=== PATIENT | male | born 1985 | race Caucasian/White ===

== ENCOUNTER 2018-06-13 14:44 | Emergency (ER) | payer MEDICAID ==
[~2018-06-13] VITALS: Ht 170.2 cm; Wt 70.0 kg
[~2018-06-13 14:44] MED LIST: AMOX500C2 PO; CHLO473M3 PO; CLIN-12 PO; CYCL-1 PO; HYDR-565 PO; LEVA15HF4 INH; METH-360 PO; NAPR-996 PO; SUCR1ORA2 PO
[2018-06-13 14:50] VITALS: BP 115/75
[2018-06-13] MEDS ORDERED: IBUP-1984 PO (18:01)
== END 2018-06-13 18:12 | disposition home or self-care (01) ==
LOC: ER 14:44
DX: S01.511D Laceration without foreign body of lip, subsequent encounter (principal); R51 Headache; G89.29 Other chronic pain; Z98.890 Other specified postprocedural states; Z79.2 Long term (current) use of antibiotics; Z79.899 Other long term (current) drug therapy; Z59.0 Homelessness; W21.07XD Struck by softball, subsequent encounter
CPT/HCPCS: 70450; 70486; 99284

== ENCOUNTER 2020-05-24 06:10 | Emergency (ER) | payer MEDICAID ==
[~2020-05-24] VITALS: Ht 177.8 cm; Wt 81.8 kg
[~2020-05-24 06:10] MED LIST changes: -AMOX500C2 PO; +HYDR-4353 PO; -HYDR-565 PO
[2020-05-24 06:21] VITALS: BP 115/76
== END 2020-05-24 06:42 | disposition home or self-care (01) ==
LOC: ER 06:11
DX: R10.33 Periumbilical pain (principal); G89.29 Other chronic pain; Z72.89 Other problems related to lifestyle; Z98.890 Other specified postprocedural states; Z59.0 Homelessness; Z79.899 Other long term (current) drug therapy
CPT/HCPCS: 99281

== ENCOUNTER 2023-12-06 10:46 | Emergency (ER) | payer MEDICAID ==
[~2023-12-06] VITALS: Ht 177.8 cm; Wt 93.0 kg
[2023-12-06] MEDS ORDERED: AMOX-580 PO (11:27)
[2023-12-06] MEDS ORDERED: NAPR-56 PO (11:27)
[2023-12-06] MEDS: CefTRIAXone 1000mg IM Kit (w/lidocaine diluent) IM ONE (11:32)
[2023-12-06 11:41] VITALS: BP 144/92; PULSE 92; RESP 16; TEMP 98.2; O2SAT 97
== END 2023-12-06 11:43 | disposition home or self-care (01) ==
LOC: ER 10:47
DX: S61.231A Puncture wound without foreign body of left index finger without damage to nail, initial encounter (principal); W55.01XA Bitten by cat, initial encounter; Y93.89 Activity, other specified; Y92.89 Other specified places as the place of occurrence of the external cause; Y99.8 Other external cause status
CPT/HCPCS: 96372; 99283; J0696

== ENCOUNTER 2025-06-14 01:14 | Emergency (ER) | payer MEDICAID ==
[~2025-06-14] VITALS: Ht 177.8 cm; Wt 65.3 kg
[~2025-06-14 01:14] MED LIST changes: +CHLO473M13 PO; -CHLO473M3 PO; -LEVA15HF4 INH; +LEVA15HF9 INH; +NAPR-1168 PO; -NAPR-996 PO
[2025-06-14 01:27] VITALS: BP 145/65; PULSE 70; RESP 15; TEMP 97.5; O2SAT 99
[2025-06-14] MEDS: LIDOcaine 1% 30ml preserv. free vial SQ STA (02:10)
--- NOTE | 2025-06-14 02:10 | Physician Documentation ---
History of Present Illness ~ Chief Complaint: Laceration Stated Complaint: THUMB LAC Time Seen by MD: 01:37 Primary Medical Doctor: [facility] HPI 39-year-old male presented for evaluation of laceration to his left thumb that he sustained while cutting vegetables for his homemade dog food. Reports an immediate onset pain. Difficulty to control bleeding. Wrapped it up came to the emergency department. This has not happened in the past. Does not know when his last tetanus shot was. Tetanus Within 5 Years: No (2011) Medication Reconciliation Allergies: Coded Allergies: No Known Allergies (Unverified , 06/14/25) Scheduled Chlorhexidine Gluconate (Periogard), 15 ML PO Q12H Clindamycin Hcl (Clindamycin Hcl), 300 MG PO QID Levalbuterol Tartrate (Xopenex Hfa), 2 PUFFS INH Q4HPRN Methocarbamol (Robaxin-750), 1 TAB PO Q12H Naproxen (Naproxen), 1 TABLET PO BID Sucralfate (Carafate), 10 ML PO ACHS Scheduled PRN Cyclobenzaprine* (Cyclobenzaprine*), 1 TABLET PO HS PRN for muscle spasms Hydrocodone Bit/Acetaminophen ([place] 10-325 Tablet), 1 TAB PO Q6H PRN for pain Past Medical History Past Medical History: Glaucoma, Chronic Back Pain Past Surgical History: orthopedic surgeries, other Alcohol Use: Occasionally Drug Use: none Lives In: Homeless Review of Systems ROS 10 point review of systems was performed and unless noted above in HPI is negative for acute process/complaint. Physical Exam Vital Signs: Temperature: 97.5, Source: Temporal, Heart Rate: 70, Respiratory Rate: 15, BP: 145/65, Pulse Oximetry: 99, Weight: 65.300 Physical Exam Physical examination: GENERAL: Awake, alert, oriented, GCS 15, no apparent distress, non-toxic appearing, answers questions, follows commands appropriately. HEENT: Atraumatic, normocephalic, pupils equal, extraocular muscles intact Active gross movements, sclerae anicteric, mucus membranes moist, no stridor. NECK: Midline, no JVD CARDIOVASCULAR: Good skin perfusion without evidence of pallor, mottling. PULMONARY: Nonlabored, symmetric chest rise, no audible wheezing, no accessory muscle use, no respiratory distress, speaking in full sentences. GASTROINTESTINAL: Not distended. NEUROLOGIC: Lucid with normal mental status. Normal facial symmetry. Moves all extremities symmetrically and with purpose. No truncal ataxia. Speech is fluid without evidence of dysarthria or aphasia, no focal deficits appreciated. EXTREMITIES: Acute deformities Skin: warm, dry PSYCHIATRIC: Normal affect, normal insight, normal concentration. Focused exam: There is a minimal, 3 mm superficial laceration to the left thumb. No active bleeding. Neurovascularly intact. The flap is already adherent. Progress Results/Orders Results/Orders Orders - LEON OSMAN DO Laceration/I&D Tray Set Up (06/14/25 ) Completed Orders - LEON OSMAN DO Tetanus/Pertuss/Diph Acell/Pf (Boostrix (06/14/25 01:40) Lidocaine 1% 30ml Vial (Xylocaine 1% Via (06/14/25 01:37) Vital Signs 06/14/25 01:27 Temp 97.5 Pulse 70 Resp 15 B/P (MAP) 145/65 Pulse Ox 99 Medical Decision Making Findings Facility Status: ED Holds, RME process The plan was discussed with the patient, who demonstrates clear understanding of the plan and is in agreement with the plan unless otherwise noted in the chart. All questions have been answered, all concerns were addressed unless otherwise documented. I was available throughout their ED stay for frequent reassessment and questions. Differential Diagnoses (considered and possible or likely): [Thumb laceration, acute traumatic pain, encounter for tetanus inoculation] ??Differential Diagnoses (considered and unlikely, not requiring evaluation currently): [No evidence of neurovascular damage] MDM Data Please see [facility] for the following: Independent Historians and external Records Review. Historian: [Patient] Independent Historians: ?[None] Medication Management: [Reviewed medication list] Social History and determinants: [Reviewed] Please see the body of the note for the following: Any independent interpretations of ECG, imaging studies. All vitals signs/haemodynamics, ordered tests were independently reviewed and interpreted by myself. Nursing triage complaint and vitals reviewed, additional nursing notes were reviewed as available and I agree unless otherwise noted or documented in contradiction in the chart Vital Signs: Independently reviewed Labs: Independently interpreted Imaging: Independently interpreted Old Medical Records: Independently reviewed, see [facility] for relevant summary and information Pulse Oximetry: [100%] interpreted as [normal on room air] by me Additionally notably showing: [Hemodynamically stable] Tests considered but not ordered include: [Hematologic workup and imaging has been considered but does not appear to be necessary given clinical nature of diagnosis] Social Determinants of Health Impact: Patient was evaluated in [facility], or [facility] [place] healthcare due to below par ratio of patient to medical providers. [] Comorbid Conditions Impacting Present Evaluation and Care/Treatment: [None] Management Discussions with other Healthcare Providers: [None] Treatment and Disposition Medication Management (Given or considered): [Tetanus update]. See EMR for details Consideration for Hospitalization/Escalation/Deescalation of Care: Admission for observation has been considered, [however the patient is able to tolerate p.o., their symptoms are controlled, they are able to rely on oral medications, and th eir chief complaint/diagnosis can be managed on outpatient basis.] ?ED Course:?[Laceration is very minor and superficial, does not require repair.] ?Shared decision making:?[Patient is hemodynamically stable for discharge home with follow with their primary care provider. [ ] Specific and cautious return precautions provided and discussed with full understanding. Any incidental findings were also discussed and follow up recommendations given. [] All questions answered. Patient/family were able to verbalize back return precautions. Patient/family agree to plan. Copies of imaging and laboratory studies were provided.] Code status:?FULL Please see the full Electronic Medical Record for full details of nursing documentation, medications list, other records of complete past medical history and conditions, vital signs, laboratory studies, and any radiologic study interpretations by radiologists. Portions of this note were completed using [employer] dictation software and as a result there may exist minor errors in spelling. I have reviewed elements of past family and social history and agree as included in note. Departure Disposition: 01 HOME / SELF CARE / HOMELESS Impression: Primary Impression: Thumb laceration Additional Impressions: Acute traumatic pain Tetanus toxoid inoculation Condition: Improved Discharge Instructions: Laceration Care, Adult, [id number] Referrals: NO PRIMARY CARE PROVIDER (PCP) Education Educated: Patient Educated regarding: diagnosis, treatment, prognosis, need for follow up Signature Scribe Signature: No scribe Attestation: This note accurately reflects clinical decisions, work performed by myself, DO DAWSON Molina NICHOLAS M DO Jun 14, 2025 02:10
[2025-06-14] MEDS: TETanus/Pertussis (Acell)/Diphther VAC/PF (Tdap-Adult) 0.5ml syringe IMVAC ONE (02:12)
== END 2025-06-14 02:23 | disposition home or self-care (01) ==
LOC: ER 01:15
DX: S61.012A Laceration without foreign body of left thumb without damage to nail, initial encounter (principal); G89.11 Acute pain due to trauma; G89.29 Other chronic pain; Z59.00 Homelessness unspecified; Z72.89 Other problems related to lifestyle; Z79.899 Other long term (current) drug therapy; W26.0XXA Contact with knife, initial encounter; Y93.G1 Activity, food preparation and clean up; Y92.89 Other specified places as the place of occurrence of the external cause; Y99.8 Other external cause status
CPT/HCPCS: 90471; 90715; 99283